=== PATIENT | male | born 1995 | race Caucasian/White ===

== ENCOUNTER 2016-09-10 09:36 | Emergency (ER) | payer BC ==
[~2016-09-10] VITALS: Ht 182.9 cm; Wt 68.0 kg
[2016-09-10 09:38] VITALS: BP 115/66; PULSE 68; RESP 12; TEMP 98.5; O2SAT 99
[2016-09-10] MEDS ORDERED: IBUP800T23 PO (10:36)
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
== END 2016-09-10 11:45 | disposition home or self-care (01) ==
LOC: NEPK 09:36
DX: S63.501A Unspecified sprain of right wrist, initial encounter (principal); X58.XXXA Exposure to other specified factors, initial encounter; Y93.55 Activity, bike riding
CPT/HCPCS: 73110; 99283